=== PATIENT | female | born 1945 | race Caucasian/White ===

== ENCOUNTER → 2020-03-10 | Outpatient (CLI) | payer MEDICARE, OTHER ==
[~2020-03-10] MED LIST: HYDR-3876 PO; LEVO250T11 PO; PHEN-640 PO; PROP60TA17 PO; TMSL.4C PO
== END ==
LOC: CANPRECLI → LABNPT 08:26
PROVIDERS: ATTEND Internal Medicine Gastroenterology
DX: Z53.21 Procedure and treatment not carried out due to patient leaving prior to being seen by health care provider (principal)